=== PATIENT | female | born 1975 | race Caucasian/White ===

== ENCOUNTER 2019-05-19 02:12 | Day surgery (SDC) ==
--- NOTE | 2019-05-19 02:45 | PROVIDER DOCUMENTATION ---
HPI-Abdominal Pain/GI Problem - General Chief Complaint: Flank Pain Stated Complaint: RIGHT ABD PAIN, NAUSEATED Time Seen by Provider: 05/19/19 02:38 Allergies/Adverse Reactions: Patient Allergies Allergy/AdvReac Type Severity Reaction Status Date / Time No Known Allergies Allergy Verified 05/19/19 03:30 - History of Present Illness-ABD Nature of Presenting Problems: patient reports sharp, rlq pain with radiation to her right flank. SHe states that she was seen at an OSH last night for urinary retention and had a leg bag placed. She stated that the pain started last night was similar to pain she had when she had a UTI several months ago. Denies fever or vomiting. Review of Systems - Adult - REVIEW OF SYSTEMS - ADULT Constitutional: reports: no symptoms reported Eyes: reports: no symptoms reported Ears, Nose, Mouth & Throat: reports: no symptoms reported Cardiovascular: reports: no symptoms reported Respiratory: reports: no symptoms reported Gastrointestinal: reports: see HPI Genitourinary: reports: see HPI Musculoskeletal: reports: no symptoms reported Integumentary: reports: no symptoms reported Neurological: reports: no symptoms reported Psychiatric: reports: no symptoms reported Endocrine: reports: no symptoms reported Hematologic/Lymphatic: reports: no symptoms reported Allergic/Immunologic: reports: no symptoms reported All Other Systems: Reviewed and Negative Past History - Adult - PAST MEDICAL HISTORY-ADULT Review of Records: reports: Old Records Reviewed Physical Exam-General - PHYSICAL EXAM-ADULT Initial Vital Signs Reviewed: Yes - CONSTITUTIONAL General Appearance: mild distress - EYES Eyes: PERRL/EOMI, pink conjunctivae - HEAD, EARS, NOSE, MOUTH & THROAT HENMT: normocephalic/atraumatic, moist mucous membranes - NECK Neck: non-tender, full range of motion - RESPIRATORY Respiratory: chest non-tender, lungs clear, normal breath sounds - GASTROINTESTINAL (ABDOMEN) Abdominal Exam: normal bowel sounds, tenderness (rlq), other - MUSCULOSKELETAL Back Exam: normal inspection, no vertebral tenderness, CVA tenderness (right) - SKIN Integumentary: normal color, normal turgor - NEUROLOGIC Neurologic: grievance and appeals specialist II-XII nml as tested, grossly normal, no motor/sensory deficits - PSYCHIATRIC Psych/Mental Status: normal thought content, normal thought process, oriented x 3, tearful Progress - PLAN OF CARE/RESULTS Progress/Plan/Lab Results: Vital Signs - 8 hr 05/19/19 02:21 Temperature 97.7 F Pulse Rate 127 H Respiratory Rate 18 Blood Pressure 185/73 O2 Sat by Pulse Oximetry 98 Result Diagrams: 05/19/19 03:26 05/19/19 03:26 - CT/MRI 1 CT Study: Abdomen, Pelvis Impression: See EMR Report - CONSULTS/PCP/HOSPITALIST Notification #1 *Consult/PCP/Hospitalist*: Dr. Spear Time Discussed: 04:57 Consult Disposition: Will see in ED (Patient to OR for lap appy.) Departure - Departure Date of Disposition Decision: 05/19/19 Time of Disposition Decision: 05:35 DIAGNOSIS: Abdominal pain Disposition: ADMITTED INPATIENT 09 Certified Medical Emergency: Emergent Condition: Serious Referrals and Follow-Ups: Rivas Johnson [Primary Care Provider] - - Critical Care Note This patient required my direct & personal management of CC.: No Attestation - Physician/ BHARAT Attestation The physician spent face to face time with patient:: Yes Advanced Practice Provider documentation review:: Supervising physician onsite and consulted in the evaluation and care of this patient. The physician did have a face to face encounter with the patient.
[2019-05-19] MEDS ORDERED: NS 1,000 ML IV ONE (02:46)
[2019-05-19] MEDS ORDERED: TORADOL IV ONE (02:46)
[2019-05-19 03:41] LABS: BASO# 0.04 X1000 (0.0-0.2); BASO% 0.4 % (0.0-0.8); EOS# 0.06 X1000 (0.0-0.7); EOS% 0.5 % (0.0-10.0); HEMATOCRIT 42.5 % (37.0-47.0); HEMOGLOBIN 14.2 g/dL (12.0-16.0); IMM GRAN# 0.02 X1000 (0.0-0.04); IMM GRAN% 0.2 % (0.0-0.5); LYMPH# 2.47 X1000 (1.2-3.4); LYMPH% 22.2 % (20.5-51.1); MCH 29.2 PG (27-31); MCHC 33.4 g/dL (33-37); MCV 87.3 FL (81-99); MONO# 0.58 X1000 (0.11-0.59); MONO% 5.2 % (1.7-9.3); MPV 11.1 FL (7.4-10.4); NEUT# 7.98 X1000 (1.4-6.5); NEUT% 71.5 % (42.2-75.2); PLT 293 X1000 (130-400); RBC 4.87 XMIL (4.2-5.4); RDW 12.9 % (11.5-14.5); WBC 11.15 X1000 (4.8-10.8)
[2019-05-19 04:04] LABS: AGAP 15; ALB/GLOB RATIO 1.3; ALBUMIN 4.4 g/dL (3.5-5.0); ALKALINE PHOSPHATASE 103 U/L (32-104); BUN 17 mg/dL (8-22); CHLORIDE 106 mmol/L (98-107); COSMO 288; CREATININE 0.8 mg/dL (0.5-0.9); ESTIMATED GFR > 60; GLUCOSE 94 mg/dL (70-104); GOT 15 U/L (10-30); GPT 14 U/L (10-36); POTASSIUM 3.9 mmol/L (3.5-5.1); SODIUM 144 mmol/L (136-145); TCO2 23 mmol/L (25-35); TOTAL BILIRUBIN 0.33 mg/dL (0.20-1.00); TOTAL PROTEIN 7.8 g/dL (6.3-8.3)
[2019-05-19] MEDS ORDERED: MORPHINE IV ONE (05:09)
[2019-05-19] MEDS ORDERED: ZOFRAN IV ONE (05:09)
--- NOTE | 2019-05-19 06:17 | HISTORY AND PHYSICAL ---
ADMITTING DIAGNOSIS: Abdominal pain. HISTORY OF PRESENT ILLNESS: A 43-year-old female presenting with sharp right lower quadrant pain that radiates to her back for at least a day. She has been seen at an outside facility for urinary retention, and had a Gilmore catheter placed. No other imaging was done at that time. She has previously had pain from urinary tract infection several months ago, but she told me that this is different than that episode. Again, she reports right lower quadrant right flank pain. PAST MEDICAL HISTORY: Hypertension and anxiety. PAST SURGICAL HISTORY: Includes cholecystectomy and hysterectomy. SOCIAL HISTORY: Nonsmoker. FAMILY HISTORY: Reviewed with the patient and noncontributory. ALLERGIES: None. HOME MEDICATIONS: None. REVIEW OF SYSTEMS: A full 14 systems reviewed and negative except as specified in HPI. PHYSICAL EXAMINATION: VITAL SIGNS: Patient is currently afebrile. Her vital signs are stable, though she does have a low-grade tachycardia in the 120s. GENERAL: A somewhat upset female looks stated age. HEENT: Normocephalic, atraumatic. Pupils equal, round, and reactive to light. Mucous membranes moist. Oropharynx benign. NECK: Supple. Trachea midline. CARDIOVASCULAR: Some tachycardia. LUNGS: Grossly clear. ABDOMEN: Tender to palpation in right lower quadrant and right flank. EXTREMITIES: Moves all extremities. NEUROLOGIC: Grossly intact. SKIN: No signs of jaundice. VASCULAR: All extremities perfused. LABORATORY: Reviewed. White blood cell count 11.1. There is no left shift. Remainder of labs reviewed. CT scan independently reviewed and radiology report reviewed. There does appear to be appendicolith's in the mid aspect of the appendix, but no other secondary signs of stranding. ASSESSMENT AND PLAN: A 43-year-old female with right lower quadrant pain. Right lower quadrant pain. At this time, I had an extensive discussion with the patient about possibilities, and discussed with her the option of an appendectomy even though there were not other signs of acute appendicitis she could be having chronic appendicitis. She does have a fecalith, which is the risk factor for developing appendicitis. Discussed with her surgical intervention may not cure her current problem. She is aware. She does want to proceed with the surgery and discussed with her the risks and benefits alternatives, risks including, but not limited to bleeding, infection, risk of anesthesia, risk of injury to other organs discussed. We also again discussed the possibility this would not fix her problem. She voiced understanding and wishes to proceed. We will schedule her for this morning. cc: Nate Spear MD
[2019-05-19] MEDS ORDERED: ZOFRAN ONE (07:36)
[2019-05-19] MEDS ORDERED: ROBINUL ONE (07:36)
[2019-05-19] MEDS ORDERED: DECADRON ONE (07:36)
[2019-05-19] MEDS ORDERED: XYLOCAINE-MPF 2% ONE (07:36)
[2019-05-19] MEDS ORDERED: FENTANYL ONE (07:37)
[2019-05-19] MEDS ORDERED: DIPRIVAN 1% ONE (07:37)
[2019-05-19] MEDS ORDERED: SENSORCAINE 0.25%/EPI 1:200,000 ONE (07:39)
[2019-05-19] MEDS ORDERED: LR 1,000 ML ONE (07:39)
[2019-05-19] MEDS ORDERED: VERSED ONE (08:00)
[2019-05-19] MEDS ORDERED: MEFOXIN 2 GM/NS 2 GM/50 ML IVPB IV ONE (08:00)
[2019-05-19] MEDS ORDERED: PEPCID ONE (08:01)
[2019-05-19] MEDS ORDERED: MEFOXIN 2 GM/NS 2 GM/50 ML IVPB ONE (08:01)
[2019-05-19] MEDS ORDERED: TORADOL ONE (08:36)
[2019-05-19] MEDS ORDERED: QUELICIN (DOSE) ONE (08:37)
[2019-05-19] MEDS ORDERED: ZEMURON ONE (08:37)
--- NOTE | 2019-05-19 09:37 | OPERATIVE NOTE ---
PROCEDURE DATE : 05/19/2019 PREOPERATIVE DIAGNOSIS: Right lower quadrant pain. POSTOPERATIVE DIAGNOSIS: Right lower quadrant pain. PROCEDURE: Laparoscopic appendectomy. SURGEON: Nate Spear MD SHOWROOM MANAGER: None. ANESTHESIA: General endotracheal. INTRAOPERATIVE FINDINGS: No major pathology on viewing the abdomen. COMPLICATIONS: None at the time of this dictation. ESTIMATED BLOOD LOSS: 5 mL. SPECIMEN REMOVED: Appendix. BRIEF HISTORY: A 43-year-old female with right lower quadrant pain. She had a CT scan that showed an appendicolith but no major pathology. She had significant pain. We did offer her an appendectomy and diagnostic laparoscopy and she wanted to proceed. The risks, benefits, and alternatives were discussed and documented in the chart. All questions were answered. DESCRIPTION OF PROCEDURE: After informed consent was obtained, the patient was brought to the Operative Theatre, transferred to the operating table, and placed in the supine position. General endotracheal anesthesia was then performed without complication. A formal time-out was then performed to confirm the patient and the procedure and all were in agreement. At that time, attention was given to the abdomen and an infraumbilical incision was made through which, using Optiview technique, we inserted an 12 mm trocar, connected insufflation, and pneumoperitoneum was achieved. Under direct visualization we placed 2 more trocars, 1 in the right upper quadrant and 1 in the left lower quadrant. Using these, the appendix was identified. It did not seem significantly inflamed. We elevated it and made a window in the base of the mesoappendix and fired a staple across. We then used 2 staplers to come across the mesentery of the appendix with good results. We placed the appendix in a bag and brought it out the infraumbilical incision. We then reexamined the abdomen. I did not see any other major pathology visualized in the small bowel. I could not easily see the kidney or the ureter on that side but everything else in that quadrant looked okay. We then closed the infraumbilical incision with 0 Vicryl and a Robin- Eboni device. We removed all trocars, disconnected insufflation, and the pneumoperitoneum was released. All skin incisions were closed with 4-0 Monocryl. The patient tolerated the procedure well and was transferred back to the recovery room and we will watch her overnight. cc: Nate Spear MD
[2019-05-19] MEDS: NORCO-10 PO PRN ×4 (11:11→22:27)
--- NOTE | 2019-05-19 11:40 | Diag Imaging Result Doc PS360 ---
EXAM: CT ABDOMEN/PELVIS W/O CONTRAST INDICATION: abd pain, TECHNIQUE: This exam was performed using automated exposure control, adjustment of mA or kV according to patient size, and/or use of iterative reconstruction technique. COMPARISON: None. FINDINGS: There is incidental trace pericardial fluid. There has been a prior cholecystectomy. The liver, spleen, pancreas, and adrenal glands are unremarkable. The kidneys appear normal. No renal stones or hydronephrosis is appreciated. There is a Gilmore catheter in the urinary bladder and the bladder is nondistended. The reproductive tract is unremarkable as imaged. The appendix is borderline to mildly prominent measuring up to 7 mm in diameter. There is no periappendiceal inflammatory change. This is assumed to be a normal variant. There is no focal bowel wall thickening and no evidence of bowel obstruction. The remainder of the GI tract is essentially unremarkable. No focal inflammatory changes, free abdominal gas, or free fluid is identified. IMPRESSION: Incidental/nonacute findings detailed above. No evidence of acute pathology by CT. Electronically signed by Yoshi Sawyer 05/19/2019 11:38 AM
[2019-05-20] MEDS: NORCO-10 PO PRN ×3 (04:24→12:40)
--- NOTE | 2019-05-20 07:30 | GENERAL SURGERY PROGRESS NOTE ---
DATE: 05/20/2019 SUBJECTIVE: Patient seems to be doing better. Her pain is improved. OBJECTIVE: Vital Signs: Patient is currently afebrile. Her vital signs are stable. General: No acute distress. Cardiovascular: Regular rhythm. Lungs: Clear. Abdomen: Soft, appropriately tender. ASSESSMENT AND PLAN: A 43-year-old female, currently postoperative day 1 from appendectomy. Postoperative. Today at this time, the patient's pain seems to be improving. If she does okay with lunch, we will consider discharge. Otherwise, continue to monitor. cc: Nate Spear MD
[2019-05-20 09:24] LABS: URINE SOURCE CATH
[2019-05-20 09:29] LABS: BILIRUBIN URINE NEGATIVE (NEGATIVE); BLOOD URINE NEGATIVE (NEGATIVE); COLOR YELLOW; GLUCOSE URINE NEGATIVE (NEGATIVE); KETONE URINE TRACE mg/dL (NEGATIVE); LEUKOCYTES URINE NEGATIVE (NEGATIVE); NITRITE URINE NEGATIVE (NEGATIVE); PROTEIN URINE 70 mg/dL (NEGATIVE); SP GRAVITY URINE 1.037; TURBIDITY URINE CLEAR (CLEAR); UR EPITHELIAL CELLS <10 /HPF (<10); URINE BACTERIA NEGATIVE /HPF; URINE RBC <10 /HPF (<10); URINE WBC <10 /HPF (<10); UROBILINOGEN URINE NORMAL (NORMAL)
[2019-05-20 11:17] VITALS: BP 156/81
== END 2019-05-20 14:15 | disposition home or self-care (01) ==
LOC: ED 02:12 → 4N 02:13 → OPS 02:13 → INTOOBSV 02:13 → 4N 05-20 06:47 → OPS 05-20 14:15
PROVIDERS: ATTEND Surgery